=== PATIENT | male | born 1980 | race Caucasian/White ===

== ENCOUNTER 2019-07-01 14:22 | Inpatient (IN) | payer OTHER ==
[~2019-07-01] VITALS: Ht 172.7 cm; Wt 65.8 kg
[2019-07-01 14:44] VITALS: BP 153/92
[2019-07-01] MEDS ORDERED: ABILIFY MAINTE300 M1 IM (14:48)
[2019-07-01 15:34] LABS: ABSOLUTE BASOPHILS 0.1 thou/uL (0.0-0.2); ABSOLUTE LYMPHOCYTES 1.3 thou/uL (0.8-5.3); ABSOLUTE MONOCYTES 0.9 thou/uL (0.0-1.2); BASOPHILS 0.4 %; EOSINOPHILS 0.3 %; HEMATOCRIT 46.4 % (42.0-52.0); HEMOGLOBIN 16.4 gm/dL (14.0-18.0); LYMPHOCYTES 10.3 %; MCHC 35.5 g/dL (28.0-37.0); MCV 92.9 fL (80.0-100.0); MONOCYTES 7.3 %; MPV 7.3 fl. (7.2-11.1); NUCLEATED RBCS 0 /100WBC; PLATELET COUNT* 308 thou/uL (150-400); POLYS 81.7 %; RBC 4.99 mil/uL (4.50-6.00); RDW-CV 12.5 % (10.5-14.5); WBC 12.2 thou/uL (4.0-11.0)
[2019-07-01 15:49] LABS: CALCIUM 9.3 mg/dL (8.5-10.1); POTASSIUM 3.2 mmol/L (3.5-5.1)
[2019-07-01 15:53] LABS: ALBUMIN 4.5 g/dL (3.4-5.0); TOTAL BILIRUBIN 0.5 mg/dL (<0.1-1.0); TOTAL PROTEIN 8.2 g/dL (6.4-8.2)
[2019-07-01 16:29] LABS: URINE BILIRUBIN NEGATIVE (Negative); URINE BLOOD NEGATIVE (Negative); URINE CLARITY CLEAR; URINE COLOR YELLOW; URINE GLUCOSE-RANDOM NEGATIVE (Negative); URINE KETONES NEGATIVE (Negative); URINE LEUKOCYTES-REFLEX NEGATIVE (Negative); URINE NITRITE-REFLEX NEGATIVE (Negative); URINE PROTEIN 1+ (Negative); URINE UROBILINOGEN 0.2 E.U./dl (0.2-1.0)
[2019-07-01 16:36] LABS: AMP/METHAMP Negative (Negative); BARBITURATES Negative (Negative); BENZODIAZEPINES Negative (Negative); COCAINE Negative (Negative); METHADONE Negative (Negative); OPIATES Negative (Negative); PCP Negative (Negative); THC POSITIVE (Negative)
[2019-07-01 17:11] VITALS: BP 155/92
[2019-07-01 17:44] VITALS: BP 155/92
--- NOTE | 2019-07-01 19:50 | NUR ---
PATIENT REC'D FROM ER PER CART BY ER STAFF. IV FLUIDS INFUSING TO GRAVITY. PATIENT NOTED RESTING W/ EYES CLOSED, RESPS EVEN AND UNLABORED. BELONGINGS NOTED ON CART. IV SITE NOTED WNL. REPORT REC'D FROM ASSISTANT DIRECTOR OF PUBLIC WORKS. ~LINDA
[2019-07-01 21:00] VITALS: BP 131/84
[2019-07-02 04:34] LABS: HEMATOCRIT 45.8 % (42.0-52.0); HEMOGLOBIN 15.4 gm/dL (14.0-18.0); MCH 32.3 pg (26.0-34.0); MCHC 33.5 g/dL (28.0-37.0); MCV 96.2 fL (80.0-100.0); MPV 7.8 fl. (7.2-11.1); RBC 4.76 mil/uL (4.50-6.00); RDW-CV 12.6 % (10.5-14.5); WBC 8.9 thou/uL (4.0-11.0)
[2019-07-02 05:06] LABS: ALBUMIN 3.5 g/dL (3.4-5.0); CALCIUM 8.2 mg/dL (8.5-10.1); CREATININE 1.2 mg/dL (0.6-1.3); MAGNESIUM 2.1 mg/dL (1.8-2.4); POTASSIUM 3.6 mmol/L (3.5-5.1); TOTAL BILIRUBIN 0.4 mg/dL (<0.1-1.0); TOTAL PROTEIN 6.2 g/dL (6.4-8.2)
[2019-07-02 08:15] VITALS: BP 94/49
--- NOTE | 2019-07-02 10:37 | EKG ---
[place] [address] ELECTROCARDIOGRAM REPORT Name: PETAR LAZAR Room: [address] ADM IN [facility]#: [id number] Admission: 07/01/19 Attend Phys: Vanessa Walsh MD Discharge: Date of : 76 Report #: [id number] THIS REPORT FOR: //name// [facility] ED Test Date: 2019-07-01 Test Time: 16:33:54 Pat Name: PETAR LAZAR Department: Room: [facility] Gender: M [employer] Assembler: CHRIS : 1980 Requested By: Jadiel Null Order Number: [id number] MD: Joseph Khan Measurements Intervals [place]arte Rate: 54 P: 31 ME: 131 QRS: 62 QRSD: 100 T: 20 QT: 459 QTc: 435 Interpretive Statements Sinus bradycardia Left ventricular hypertrophy ST elev, probable normal early repol pattern Baseline wander in lead(s) I,III,aVL No previous ECG available for comparison Electronically Signed On 07-02-2019 10:36:47 STAND GRINDER by Joseph Khan [email or web address] <ELECTRONICALLY SIGNED> By: Joseph Khan MD, FACC 07/02/19 1036 [id number] [id number] Joseph Khan MD, FAC /EPI
--- NOTE | 2019-07-02 13:51 | NUR ---
PATIENT LEFT AMA AT THIS TIME. IV DC'D. PATIENT EDUCATED ON RISK OF LEAVING AMA, PATIENT STILL REQUESTING TO LEAVE. RIDE OPERATOR NOTIFIED AND DR. MASSEY TO BE NOTIFIED. PATIENT DID TOLERATE REG DIET PRIOR TO DISCHARGE AND TELE TANVIR RECOMMENDATIONS MADE.
== END 2019-07-02 13:53 | disposition left against medical advice (07) | DRG 683 ==
LOC: M.ERS 14:22 → M.ORTHSURG 16:55 → M.TBA-ER 16:55 → M.ORTHSURG 17:49
PROVIDERS: Emergency Medicine; ADMIT Internal Medicine
DX: N17.9 Acute kidney failure, unspecified (principal); E87.2 Acidosis; F31.9 Bipolar disorder, unspecified; E86.0 Dehydration; F12.90 Cannabis use, unspecified, uncomplicated; F17.210 Nicotine dependence, cigarettes, uncomplicated; F19.10 Other psychoactive substance abuse, uncomplicated; Z53.29 Procedure and treatment not carried out because of patient's decision for other reasons; Z79.899 Other long term (current) drug therapy